=== PATIENT | female | born 1960 | race Caucasian/White ===

== ENCOUNTER → 2018-01-03 | Day surgery (SDC) | payer OTHER ==
[~2018-01-03] MED LIST: DIOVAN 80 MG TA80 M1 PO; MAXZIDE-25 MG1 EACH PO; METFORMIN HCL500 MG PO; NIFEDIPINE ER30 M1 PO; PIOGLITAZONE30 MG PO; TRADJENTA5 MG; VITAMIN D1000 UNI1 PO
--- NOTE | ~2018-01-03 | PROC ---
[address] [address] PROCEDURE REPORT Name: RANDI ALVAREZ Room: [facility].#: [id number] Admission: 01/03/18 Attend Phys: Cesar Arroyo MD Discharge: Date of : 60 Report #: [id number] THIS REPORT FOR: //name// For GI report, please see the Provation report in Perceptive 7 content. By: 05Medical Records Staff CHRISTOPHER /FRANCISCO
[2018-01-03 12:34] LABS: HEMATOCRIT 42.8 % (37.0-47.0); HEMOGLOBIN 14.4 gm/dL (12.0-15.0); MCH 30.1 pg (26.0-34.0); MCHC 33.6 g/dL (28.0-37.0); MCV 89.5 fL (80.0-100.0); MPV 7.1 fl. (7.2-11.1); RBC 4.78 mil/uL (4.20-5.00); RDW-CV 14.1 % (10.5-14.5)
[2018-01-03 12:41] LABS: CALCIUM 9.7 mg/dL (8.5-10.1); CREATININE 1.1 mg/dL (0.6-1.3); POTASSIUM 3.3 mmol/L (3.5-5.1)
[2018-01-03 12:46] LABS: ALBUMIN 3.8 g/dL (3.4-5.0); TOTAL BILIRUBIN 0.6 mg/dL (<0.1-1.0); TOTAL PROTEIN 8.2 g/dL (6.4-8.2)
--- NOTE | 2018-01-03 18:18 | EKG ---
[place] [address] ELECTROCARDIOGRAM REPORT Name: RANDI ALVAREZ Room: [facility]#: [id number] Admission: 01/03/18 Attend Phys: Cesar Arroyo MD Discharge: Date of : 60 Report #: [id number] THIS REPORT FOR: //name// [facility] Test Date: 2018-01-03 Test Time: 14:35:33 Pat Name: RANDI ALVAREZ Department: Room: Gender: F Lens Cutter: 27 : 1960 Requested By: Cristian Bob Order Number: [id number] Jon SOMMER: Emre Bundy Measurements Intervals [place] Rate: 62 P: 59 ID: [id number] QRS: 33 QRSD: 100 T: 66 QT: 446 QTc: 453 Interpretive Statements Sinus rhythm No previous ECG available for comparison Electronically Signed On 01-03-2018 18:18:23 CDT by Emre Bundy [email or web address] <ELECTRONICALLY SIGNED> By: Emre Bundy MD, [facility] 01/03/18 1818 1435 1435 Emre Bundy MD, FACC /EPI
--- NOTE | 2018-01-05 10:36 | S ---
[address] [address] SURGICAL PATH RPT PROCEDURE Name: RANDI RASHID Room: [facility]#: [id number] Admission: 01/03/18 Date of : 60 Discharge: Report #: [id number] Path Case #: [id number] PATHOLOGY REPORT COLLECTION DATE: 01/03/2018 RECEIVED DATE: 01/03/2018 SUBMITTING PHYS: Dr. Cesar Arroyo OTHER PHYS: Dr. Naomi Nevarez SPECIMEN(S) RECEIVED: A.Ascending colon ulcer * * * * * * * * * * * * FINAL DIAGNOSIS: Colonic mucosa, "ascending colon ulcer": - Acute ulceration with granulation tissue and with focal reactive changes. - There is no evidence of high-grade dysplasia or malignancy. (see comment) COMMENT: There is acute ulcer with pseudopolypoid formation with reactive changes. There is also some cryptitis and architectural distortion. These findings can also be seen with patients with inflammatory bowel disease which should be ruled out. This case was also reviewed by Dr. Zuleyka Michaud. (SHA:mgr; 01/04/2018) PATHOLOGIST: Wander Cloud M.D. REPORT ELECTRONICALLY SIGNED BY: Wander Cloud M.D. DATE/TIME: 01/05/2018 10:35 * * * * * * * * * * * * GROSS PATHOLOGY: Received in formalin labeled "Randi Rashid, ascending colon ulcer," are 3 segments of dugan soft tissue measuring 0.9 x 0.4 x 0.3 cm in aggregate dimensions and ranging from 0.2 to 0.4 cm in maximum dimension. The specimen is submitted entirely in cassette A1. (TSD; 01/03/2018) CLINICAL HISTORY: Blood in stool, change in bowel habits INITIAL CPT CODE(S): A; 20645 Professional services performed by [employer] [place] [address] SURGICAL PATH RPT PROCEDURE Name: RANDI RASHID Room: [facility]#: [id number] Admission: 01/03/18 Date of : 60 Discharge: Report #: [id number] Path Case #: [id number] [place] [address]. Technical services performed by [employer] at [address] [place] [address], [facility] [address] [address]. [place] [address] PHONE: [phone] DIRECTOR: Mark Villeda M.D. * * * END OF REPORT * * *
== END | disposition home or self-care (01) ==
LOC: M.SUR 08:02
PROVIDERS: Internal Medicine Gastroenterology
DX: K63.3 Ulcer of intestine (principal); K64.8 Other hemorrhoids; I10 Essential (primary) hypertension; E78.5 Hyperlipidemia, unspecified; E11.9 Type 2 diabetes mellitus without complications; E66.09 Other obesity due to excess calories; Z98.890 Other specified postprocedural states; Z90.49 Acquired absence of other specified parts of digestive tract; Z88.2 Allergy status to sulfonamides; Z88.8 Allergy status to other drugs, medicaments and biological substances